=== PATIENT | male | born 1990 | race Caucasian/White ===

== ENCOUNTER 2022-05-28 18:11 | Emergency (ER) | payer MEDICARE, SELFPAY ==
[2022-05-28 18:13] VITALS: BP 163/90; PULSE 112; RESP 14; TEMP 36.6; O2SAT 97; BMI 43.9
[2022-05-28 18:46] LABS: Absolute Neutrophil Count 14.3 X10^3/uL (2.0-7.7); Basophil# 0.09 X10^3/uL; Basophil% 0.5 % (0-1); Eosinophils% 1.1 % (0-5); Hematocrit 45.4 % (40-54); Hemoglobin 14.7 g/dL (13.0-16.5); Lymphocyte % 17.9 % (19-41); Mean Corp Hgb Conc 32.4 g/dL (32-36); Mean Corpuscular Hgb 28.9 pg (27.0-32.0); Mean Corpuscular Volume 89.4 fL (80-94); Mean Platelet Vol. 9.1 fl (6.2-12.0); Monocyte# 0.86 X10^3/uL; Monocyte% 4.5 % (0-10); NRBC Flagged by Analyzer 0 % (0-5); Neutrophil # 14.34 X10^3/uL (2.7-7.7); Neutrophil % 75.5 % (47-70); Platelet Count 560 K/mm3 (150-450); RBC Distribution Width CV 12.5 % (11.6-14.6); RBC Distribution Width SD 41.2 fl (35.1-43.9); Red Blood Count 5.08 M/mm3 (4.6-6.2)
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
[2022-05-28 18:56] LABS: Amphetamine Urine VISTA NEGATIVE (<1000 ng/mL); Barbiturate Urine VISTA NEGATIVE (< 200 ng/mL); Benzodiazepine Urine VISTA NEGATIVE (< 200 ng/mL); Cocaine Urine VISTA NEGATIVE (< 300 ng/mL); Ecstacy Urine VISTA NEGATIVE (< 500 ng/mL); Methadone Urine VISTA NEGATIVE (< 300 ng/mL); PCP Urine VISTA NEGATIVE (< 25 ng/mL); THC Urine VISTA POSITIVE (< 50 ng/mL); Vista UDS pH Range 6
[2022-05-28 18:59] LABS: Anion Gap 10 (5-15); BUN 11 mg/dL (7-18); BUN/Creat Ratio 11.9 RATIO (10-20); Calcium,Total 9.2 mg/dL (8.5-10.1); Chloride 102 mmol/L (98-107); Creatinine, Serum 0.92 mg/dL (0.70-1.30); EST Glomerular Filtration Rate 101 mL/min (>60); Est Glom Filt Rate - Afr Amer 123 mL/min (>60); Estimated Creatinine Clearance 89.85 ml/min; Glucose 176 mg/dL (74-106); Potassium 3.4 mmol/L (3.5-5.1); Sodium Level 139 mmol/L (136-145)
[2022-05-28 19:03] LABS: Alcohol, Blood (Medical)-Serum < 3.0 mg/dL
[2022-05-28 21:20] VITALS: BP 156/87; PULSE 85; RESP 19; O2SAT 97
== END 2022-05-28 22:09 | disposition home or self-care (01) ==
PROVIDERS: Emergency Provider Emergency Medicine; Referring Provider Emergency Medicine; Visit Provider Emergency Medicine
DX: F20.0 Paranoid schizophrenia (principal); F17.210 Nicotine dependence, cigarettes, uncomplicated
CPT/HCPCS: 80048; 80307; 82077; 85025; 87811; 99285

== ENCOUNTER 2022-05-29 13:41 | Emergency (ER) | payer MEDICARE, MEDICAID, SELFPAY ==
[2022-05-29 13:42] VITALS: BP 157/99; PULSE 98; RESP 18; TEMP 35.7; O2SAT 96
--- NOTE | 2022-05-29 14:59 | CM.ED ---
JULIA called Saturnino at [facility] [place]. Saturnino said that [facility] since and it has been a nightmare. Saturnino margoth that patient has been moving furniture, turning lights on in the guys room at nights and this morning patient was walking around naked and peeing on the floor. Patient was also calling individuals Bitch and N-ruperto. Saturnino said that patient threatened other clients and said that he was going to kill his dog. Patient also threatened to kill his dad and brother. Saturnino said that he had patient a couple of years ago and there was no issue. Per Saturnino patient is up all night and had barricated himself and the dog in a room. Patient also satated he was going to hurt himself. Patient has a guardian, Jorgito Olivo [phone]. Saturnino's number at [facility] is [phone]. Saturnino said that patient was previously at [facility]. Per chart review patient was evaluated yesterday by crisis and discharged back to [facility]. Jumana GAINES
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
--- NOTE | 2022-05-29 18:29 | EDS_ITS ---
HPI HPI - Psych History of Present Illness Chief Complaint: Mental Health Detail of Chief Complaint: Homeless male with homicidal intention Informant: patient and police/director search marketing strategies Onset/Context/Timing Onset: - (Uncertain) Context: Unable to determine since patient is denying Conflict: Family and - (Evicted from [facility] per patient) Timing: Continuous and Waxes and wanes Current Severity: Mild Maximum Severity: Severe Worsened by: Situational factors and - (Behavior and homicidal ideation) Relieved by: Nothing Associated Symptoms Associated Symptoms - Psych: Positive for Change in Eating, Change in sleeping, Easily distracted, Angry and Paranoia; Negative for Decreased Concentration, Suicidal Thoughts, Grandiosity, Increased activity, Agitated, Hostile, Threatening, Confusion or Visual Hallucinations Specific plan (suicidal thought): Not applicable Narrative Narrative: Patient is a 32-year-old male who was seen yesterday. He was discharged home. He apparently was removed from the [facility] because of urinating in the group shower and out in public. He states he has been homeless for the past 3 days and is walked 150 miles . He states he is compliant with his medication. He was in the emergency department earlier this afternoon. He left prior to being seen. He was brought back because on Facebook it was found that he intends on killing his brother and father. He admits there is a problem. He denies homicidal or suicidal thoughts, however. Patient is not forthcoming with information. Patient blames the [facility] for his present situation and his family. He states he is in conflict with his family. Prior similar symptoms: Yes Recent Illness/Hospitalization: Yes PFSH PFSH Medical History Schizo affective schizophrenia Allergy/AdvReac Type Severity Reaction Status Date / Time lurasidone [From Latuda] Allergy Hives Verified 05/29/22 13:42 Family History unable to obtain Surgical History no surgical history Social History (Updated 05/29/22 @ 18:[address] Danny Lopez MD) housing: homeless Smoking Status: Current every day smoker tobacco type: cigarettes ROS ROS ED Review of Systems ROS Unobtainable: due to mental condition EXAM Physical Exam Const Vital Signs: 05/29/22 13:42 Temperature 96.2 F L Temperature Source Temporal Pulse Rate 98 Respiratory Rate 18 Blood Pressure 157/99 H Blood Pressure Mean 118 Pulse Ox 96 Oxygen Delivery Method Room Air Positive well nourished, well developed, obese and unkempt Constitutional Narrative: Patient is slightly agitated. He is not threatening. General Appearance ED: unkempt, well developed and irritable; Negative for pallor Nutritional Appearance: obese HEENT Reports moist mucous membranes HEENT Narrative: Ears are normal. Nares are patent. Posterior pharynx is normal. normocephalic and atraumatic Eyes PERRL and EOMs intact bilaterally Eyes Narrative: Patient has bilateral subconjunctival hemorrhage. General Eye ED: Negative for pale conjunctiva or scleral icterus Neck no lymphadenopathy, supple and no JVD Resp normal respiratory effort and clear to auscultation bilaterally Cardio S1 normal heart sound, S2 normal heart sound and no murmurs Rate: regular rate Rhythm: regular rhythm GI non-tender, non-distended and no masses Auscultation: normoactive bowel sounds Palpation: soft Back/Spine no CVA tenderness Thoracic Spine / Upper Back: Negative for thoracic spinal tenderness Lumbar Spine / Lower Back: Negative for lumbar spinal tenderness Neuro oriented x3, CN's II-XII intact bilaterally and no sensory deficits noted Cherie Coma Scale: document GCS findings Spontaneous Obeys Commands Oriented 15 Sensorium / Orientation: alert Psych denies hallucinations, denies homicidal ideation and denies suicidal ideation Appearance: unkempt and disheveled Attitude: agitated Activity / Motor Behavior: psychomotor agitation and avoids eye contact Speech: rapid Mood & Affect: irritable Thought Content: No suicidality, No homicidality and other Patient denies homicidal ideation however documentation from Facebook contradicts patient's verbal response. Attention / Concentration: attention grossly impaired Insight: poor Judgement: poor Skin Skin Narrative: Patient has no bruises noted. Plantar surface of his feet are consistent with cold and wet exposure. General Skin Exam: Negative for jaundice or pallor MDM MDM MDM Narrative Medical decision making narrative: Will repeat tests that were abnormal yesterday. Since he had a COVID test and 72 hours has not passed since his last test yesterday May 28. White count was elevated and will repeat. This may be due to stress. Talk screen was repeated as well as alcohol. [place] slip was completed. Patient was seen by case management and the counseling center was contacted since he will need placement. Discharge Plan Triage Chief Complaint: Mental Health ED Provider: Danny Lopez Dx/Rx/DC Orders Primary Care Provider: NOT,DEFINED Referrals: NOT,DEFINED [Primary Care Provider] -
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
--- NOTE | 2022-05-29 18:48 | CM.ED ---
JULIA note: JULIA called [place] left message that patient had been returned to ED. Jumana GAINES
[2022-05-29 18:53] VITALS: RESP 18
[2022-05-29 18:54] LABS: Absolute Lymphocyte Count 3.01 X10^3/uL (0.83-4.51); Absolute Neutrophil Count 19.2 X10^3/uL (2.0-7.7); Basophil# 0.08 X10^3/uL; Basophil% 0.3 % (0-1); Eosinophil# 0.13 X10^3/uL; Eosinophils% 0.5 % (0-5); Hemoglobin 14.7 g/dL (13.0-16.5); Lymphocyte # 3.01 X10^3/ul (0.83-4.51); Lymphocyte % 12.7 % (19-41); Mean Corpuscular Hgb 28.6 pg (27.0-32.0); Mean Corpuscular Volume 89.5 fL (80-94); Mean Platelet Vol. 9.2 fl (6.2-12.0); Monocyte# 1.17 X10^3/uL; Monocyte% 4.9 % (0-10); NRBC Flagged by Analyzer 0 % (0-5); Neutrophil # 19.18 X10^3/uL (2.7-7.7); Neutrophil % 81.1 % (47-70); Platelet Count 578 K/mm3 (150-450); RBC Distribution Width CV 12.7 % (11.6-14.6); RBC Distribution Width SD 41.7 fl (35.1-43.9); Red Blood Count 5.14 M/mm3 (4.6-6.2); White Blood Count 23.7 K/mm3 (4.4-11.0)
--- NOTE | 2022-05-29 18:59 | ED.RN ---
per dr. glass pt does not require a sitter at this time.
[2022-05-29 19:01] LABS: Bacteria 0 SEEN /hpf (None Seen); Mucous, Urine 0 SEEN /hpf (<or=2+); Red Blood Cells-Urine 0 SEEN /hpf (0-5); Squamous Epithelial Cells - UA 0 SEEN /hpf (0-5); White Blood Cells 0 SEEN /hpf (0-5)
[2022-05-29 19:02] LABS: Color, Urine Yellow (Yellow); Glucose, Dipstick Normal (Normal); Ketone-Dipstick Negative (Negative); Leukocyte Esterase-Dipstick Negative /ul (Negative); Nitrite-Dipstick Negative (Negative); Occult Blood-Urine Negative /ul (Negative); Protein-Dipstick Negative (Negative); Specific Gravity, Urine 1.005 (1.002-1.030); Urine Bilirubin Dipstick Negative (Negative); Urine Clarity Clear (Clear); Urine Urobilinogen Normal (Normal)
[2022-05-29 19:10] LABS: Alcohol, Blood (Medical)-Serum < 3.0 mg/dL; Anion Gap 8 (5-15); BUN 9 mg/dL (7-18); Calcium,Total 9.4 mg/dL (8.5-10.1); Chloride 106 mmol/L (98-107); EST Glomerular Filtration Rate 105 mL/min (>60); Est Glom Filt Rate - Afr Amer 127 mL/min (>60); Glucose 167 mg/dL (74-106); Sodium Level 138 mmol/L (136-145)
[2022-05-29 19:14] LABS: Amphetamine Urine VISTA NEGATIVE (<1000 ng/mL); Barbiturate Urine VISTA NEGATIVE (< 200 ng/mL); Benzodiazepine Urine VISTA NEGATIVE (< 200 ng/mL); Cocaine Urine VISTA NEGATIVE (< 300 ng/mL); Ecstacy Urine VISTA NEGATIVE (< 500 ng/mL); Methadone Urine VISTA NEGATIVE (< 300 ng/mL); PCP Urine VISTA NEGATIVE (< 25 ng/mL); THC Urine VISTA NEGATIVE (< 50 ng/mL); Vista UDS pH Range 7
--- NOTE | 2022-05-29 19:34 | CM.ED ---
JULIA received call from Saturnino at [facility]. He said that patient's father said that [facility] was [facility]. JULIA advised patient had returned. Saturnino said well, the guardian told me that I could file trespassing charges on him if he comes back. Jumana GAINES
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
--- NOTE | 2022-05-29 20:47 | CM.ED ---
SW Note SW noted that patient was laying on the ground in his room. Later patient said Hi, I'm Idris and started inappropriately laughing. Jumana GAINES
[2022-05-29 21:38] VITALS: RESP 18; BMI 42.8
--- NOTE | 2022-05-29 22:08 | ED.RN ---
called pharmacy to inquire about HS medications
--- NOTE | 2022-05-29 22:10 | CM.ED ---
SW had requested crisis meet with patient and complete the assessment due to patient calling this policy writer various derogatory names. Socorro from crisis will assess patient. Jumana Royal
[2022-05-29] MEDS: Lithium Carbonate 300mg Capsule 900 MG PO (22:14)
--- NOTE | 2022-05-30 00:48 | EKG12_ITS ---
Test Reason : [facility] [place] Pressure : / mmHG Vent. Rate : 058 BPM Atrial Rate : 058 BPM P-R Int : 148 ms QRS Dur : 078 ms QT Int : 406 ms P-R-T Axes : 003 050 037 degrees QTc Int : 398 ms Sinus bradycardia with sinus arrhythmia Otherwise normal ECG Confirmed by YENNI SOTO, STEPHANIE ([id number]), content editor EMILIA LUNA ([id number]) on 05/31/2022 1:29:22 PM Referred By: MOHINI Confirmed By:STEPHANIE HYMAN MD
[2022-05-30 00:51] VITALS: RESP 18
[2022-05-30] MEDS: traZODone 50 MG Tablet PO (01:45)
[2022-05-30 02:00] VITALS: BP 147/89; PULSE 85; RESP 18; O2SAT 98
[2022-05-30 03:03] VITALS: RESP 16
[2022-05-30 03:53] VITALS: RESP 18
[2022-05-30 07:11] VITALS: BP 139/76; PULSE 82; RESP 16; O2SAT 97
[2022-05-30 09:08] VITALS: BP 129/78; PULSE 62; RESP 15; O2SAT 98
== END 2022-05-30 09:09 ==
PROVIDERS: Emergency Medicine; Emergency Provider Emergency Medicine; Visit Provider Emergency Medicine
DX: R45.850 Homicidal ideations (principal); Z59.00 Homelessness unspecified; Z20.822 Contact with and (suspected) exposure to COVID-19; F17.210 Nicotine dependence, cigarettes, uncomplicated; E66.9 Obesity, unspecified
CPT/HCPCS: 80048; 80178; 80307; 81001; 82077; 85025; 87428; 93005; 99285